=== PATIENT | male | born 1980 | race Two or more races ===

== ENCOUNTER 2017-12-10 14:03 | Emergency (ER) | payer SELFPAY ==
[2017-12-10 14:11] VITALS: BP 138/98; PULSE 102; TEMP 98.2; BMI 29.0
[2017-12-10] MEDS ORDERED: IBUPROFEN 400 MG TABLET (FP) PO ONE ×2 (14:46→14:47)
--- NOTE | 2017-12-10 14:56 | PDOC ---
History of Present Illness - General Chief Complaint: Injury Stated Complaint: INJURY Time Seen by Provider: 12/10/17 14:34 History Source: Patient Exam Limitations: No Limitations - History of Present Illness Initial Comments: 12/10/17 14:51 36 yr male with injury to left knee after kicking a door last night felt pain to the knee. no pain meds taken [employer], no previous history of knee injury. Past History - Past Medical History Allergies/Adverse Reactions: Allergies Allergy/AdvReac Type Severity Reaction Status Date / Time No Known Allergies Allergy Verified 12/10/17 14:41 Home Medications: Ambulatory Orders NK [No Known Home Medication] 12/10/17 COPD: No - Immunization History Immunization Up to Date: Yes - Suicide/Smoking/Psychosocial Hx Smoking History: Current every day smoker Number of Cigarettes Smoked Daily: 20 Information on smoking cessation initiated: No Hx Alcohol Use: No Drug/Substance Use Hx: No Substance Use Type: None Review of Systems - Review of Systems Able to Perform ROS?: Yes Is the patient limited Green[place]ic proficient: No Constitutional: No: Symptoms Reported HEENTM: No: Symptoms Reported Respiratory: No: Symptoms reported Cardiac (ROS): No: Symptoms Reported ABD/GI: No: Symptoms Reported : No: Symptoms Reported Musculoskeletal: Yes: Symptoms Reported Integumentary: No: Symptoms Reported Neurological: No: Symptoms reported *Physical Exam - Vital Signs Last Vital Signs Temp Pulse Resp BP Pulse Ox 98.2 F 102 H 16 138/98 99 12/10/17 14:09 12/10/17 14:09 12/10/17 14:09 12/10/17 14:09 12/10/17 14:09 - Physical Exam General Appearance: Yes: Nourished, Appropriately Dressed HEENT: positive: EOMI, CHEN Neck: positive: Supple. negative: Tender Respiratory/Chest: positive: Lungs Clear, Normal Breath Sounds Cardiovascular: positive: Regular Rhythm, Regular Rate Gastrointestinal/Abdominal: positive: Normal Bowel Sounds, Soft Musculoskeletal: positive: Normal Inspection Extremity: positive: Normal Capillary Refill, Normal Inspection, Normal Range of Motion, Tender (posterior knee no calf tenderness, no swelling, achiles tendon intact ). negative: Pedal Edema, Swelling, Erythema, Inflammation Integumentary: positive: Normal Color, Dry, Warm Neurologic: positive: Fully Oriented, Alert, Normal Mood/Affect, Normal Response , Motor Strength 5/5 Procedures - Splinting Pre-Proc Neuro Vasc Exam: normal (alexander wrap applied to the left knee ) ED Treatment Course - RADIOLOGY Radiology Studies Ordered: Category Date Time Status KNEE 3 POS-LEFT [RAD] Stat Radiology 12/10/17 14:26 Taken Medical Decision Making - Medical Decision Making 12/10/17 14:51 cc: knee pain after kicking a door last night pt is ambulating steady gait no crepitus or swelling or deformity. will get xray to r/o fracture or deformity *DC/Admit/Observation/Transfer Diagnosis at time of Disposition: Strain of knee and leg, left Qualifiers: Encounter type: initial encounter Qualified Code(s): S86.912A - Strain of unspecified muscle(s) and tendon(s) at lower leg level, left leg, initial encounter - Discharge Dispostion Disposition: HOME Condition at time of disposition: Good - Referrals - Patient Instructions Additional Instructions: elevate and apply ice to the area of pain every 2hrs for 20 minutes follow with the orthopedist for follow up next week if pain continues or worsens take ibuprofen as needed for pain 600-800mg every 6-8hrs (over the counter) use the alexander wrap while awake remove to sleep and bathe - Post Discharge Activity
== END 2017-12-10 15:03 | disposition home or self-care (01) ==
LOC: JERFT 14:03
DX: S86.812A Strain of other muscle(s) and tendon(s) at lower leg level, left leg, initial encounter (principal); W22.8XXA Striking against or struck by other objects, initial encounter
CPT/HCPCS: 73562-TC-LT-FY; 99281-25

== ENCOUNTER 2018-04-05 23:52 | Emergency (ER) | payer BC ==
[2018-04-06 00:23] VITALS: BP 128/79; PULSE 84; TEMP 98.7; BMI 27.1
[2018-04-06] MEDS ORDERED: TETANUS AND DIPHTHERIA TOXOID 0.5 ML DISP.SYRIN IM ONE (01:41)
[2018-04-06] MEDS ORDERED: CEPHALEXIN MONOHYDRATE 500 MG CAPSULE (UD) PO ONE (01:41)
--- NOTE | 2018-04-06 01:46 | PDOC ---
History of Present Illness - General Chief Complaint: Laceration Stated Complaint: LACERATION LEFT POINTER FINGER Time Seen by Provider: 04/06/18 00:58 - History of Present Illness Initial Comments: 04/06/18 01:42 37 year old male c/o left pointer finger laceration while cutting chicken at 9pm. patient cut the left finger nail without avulsion. tetnaus is not up to date Past History - Past Medical History Allergies/Adverse Reactions: Allergies Allergy/AdvReac Type Severity Reaction Status Date / Time No Known Allergies Allergy Verified 12/10/17 14:41 Home Medications: Ambulatory Orders Cephalexin Monohydrate [Keflex -] 500 mg PO Q8H #30 capsule 04/06/18 COPD: No - Immunization History Immunization Up to Date: Yes - Suicide/Smoking/Psychosocial Hx Smoking History: Current every day smoker Number of Cigarettes Smoked Daily: 20 Information on smoking cessation initiated: Yes Hx Alcohol Use: Yes ("Often") Drug/Substance Use Hx: No Substance Use Type: None *Physical Exam - Vital Signs Last Vital Signs Temp Pulse Resp BP Pulse Ox 98.7 F 84 20 128/79 96 04/06/18 00:21 04/06/18 00:21 04/06/18 00:21 04/06/18 00:21 04/06/18 00:21 - Physical Exam General Appearance: Yes: Appropriately Dressed Extremity: positive: Other (left index finger nail laceration) Moderate Sedation - Procedure Monitoring Vital Signs: Procedure Monitoring Vital Signs Temperature 98.7 F 04/06/18 00:21 Pulse Rate 84 04/06/18 00:21 Respiratory Rate 20 04/06/18 00:21 Blood Pressure 128/79 04/06/18 00:21 O2 Sat by Pulse Oximetry (%) 96 04/06/18 00:21 Procedures - Laceration/Wound Repair Anterior Finger Wound Length: to 2.5 cm Wound Explored: clean Wound's Depth, Shape: linear Irrigated w/ Saline: Yes Betadine Prep: Yes Wound Repaired With: Dermabond Progress: 04/06/18 02:11 wound irrigated to left index finger. no active bkeeding, 1 c, linear laceration left index finger nail Progress Note - Progress Note Progress Note: A: nail bed laceration P: see procedure note tetanus cephalexin *DC/Admit/Observation/Transfer Diagnosis at time of Disposition: Laceration of finger nail bed Qualifiers: Encounter type: initial encounter Qualified Code(s): S61.319A - Laceration without foreign body of unspecified finger with damage to nail, initial encounter - Discharge Dispostion Disposition: HOME Condition at time of disposition: Good - Prescriptions Prescriptions: Cephalexin Monohydrate [Keflex -] 500 mg PO Q8H #30 capsule - Referrals - Patient Instructions Printed Discharge Instructions: DI for Laceration Repair With Dermabond Additional Instructions: Keep wound clean and dry. Take cephalexin as ordered Follow up with you doctor in 2-3 days for wound check Return to the emergency room if you have increased redness pain pus drainage at the wound. - Post Discharge Activity Forms/Work/School Notes: Back to Work
[2018-04-06] MEDS ORDERED: DIPHTH,PERTUSS(ACELL),TET 0.5 ML DISP.SYRIN IM ONE ×2 (02:00→02:40)
--- NOTE | 2018-04-06 02:26 | PDOC ---
*Physical Exam - Vital Signs Last Vital Signs Temp Pulse Resp BP Pulse Ox 98.7 F 84 20 128/79 96 04/06/18 00:21 04/06/18 00:21 04/06/18 00:21 04/06/18 00:21 04/06/18 00:21 Medical Decision Making - Medical Decision Making 04/06/18 02:25 Patient seen by the advanced practice provider under my direct supervision. Ancillary testing reviewed as necessary. I agree with plan as outlined by the advanced practice provider. *DC/Admit/Observation/Transfer Diagnosis at time of Disposition: Laceration of finger nail bed Qualifiers: Encounter type: initial encounter Qualified Code(s): S61.319A - Laceration without foreign body of unspecified finger with damage to nail, initial encounter - Discharge Dispostion Disposition: HOME - Prescriptions Prescriptions: Cephalexin Monohydrate [Keflex -] 500 mg PO Q8H #30 capsule - Referrals - Patient Instructions Printed Discharge Instructions: DI for Laceration Repair With Dermabond Additional Instructions: Keep wound clean and dry. Take cephalexin as ordered Follow up with you doctor in 2-3 days for wound check Return to the emergency room if you have increased redness pain pus drainage at the wound. - Post Discharge Activity Forms/Work/School Notes: Back to Work
[2018-04-06] MEDS ORDERED: CEPHALEXIN MONOHYDRATE 500 MG CAPSULE (UD) ONE (02:40)
== END 2018-04-06 02:47 | disposition home or self-care (01) ==
LOC: JER 23:52
PROC: 0HQGXZZ Repair Left Hand Skin, External Approach (ICD-10-PCS; principal; 2018-04-05)
PROC: 3E0234Z Introduction of Serum, Toxoid and Vaccine into Muscle, Percutaneous Approach (ICD-10-PCS; 2018-04-05)
DX: S61.311A Laceration without foreign body of left index finger with damage to nail, initial encounter (principal); W26.0XXA Contact with knife, initial encounter; Y93.G1 Activity, food preparation and clean up; Y92.030 Kitchen in apartment as the place of occurrence of the external cause; Y99.8 Other external cause status
CPT/HCPCS: 90715; 99281-25